=== PATIENT | male | born 1960 | race Caucasian/White ===

== ENCOUNTER 2017-02-25 15:37 | Observation (INO) | payer OTHER ==
[2017-02-25] MEDS ORDERED: IOPAMIDOL (ISOVUE-300) 100 ML BTL ONE (17:08)
[2017-02-25] MEDS ORDERED: TDAP ADULT 0.5 ML INJ (BOOSTRIX) IM ONE (17:12)
[2017-02-25] MEDS ORDERED: HYDROmorphONE/DILAUDID 2 MG/ML INJ ONE (17:20)
[2017-02-25] MEDS ORDERED: ONDANSETRON 4 MG/2 ML VIAL ONE (17:20)
[2017-02-25] MEDS ORDERED: ONDANSETRON 4 MG/2 ML VIAL IVP ONE (17:37)
[2017-02-25] MEDS ORDERED: HYDROmorphONE/DILAUDID 1 MG/ML SYR IVP ONE (17:37)
[2017-02-25 18:04] LABS: % IMMATURE GRANULYOCYTES 0.4 % (0.0-1.1); ABSOLUTE IMMATURE GRANULOCYTES 0.04 10^3/uL (0.00-0.10); ADD DIFF? NO; ADD MORPH? NO; ADD SCAN? NO; ATYPICAL LYMPHOCYTE FLAG 0 (0-99); FRAGMENT RBC FLAG 0 (0-99); HEMATOCRIT 48.2 % (40.0-51.0); HEMOGLOBIN 16.8 g/dL (13.7-17.5); LEFT SHIFT FLG 0 (0-99); LIPEMIA HEMOLYSIS FLAG 90 (0-99); MEAN CELL HEMOGLOBIN CONCENTR. 34.9 g/dL (32.4-36.7); MEAN CELL VOLUME 88.9 fL (81.5-99.8); MEAN PLATELET VOLUME 10.3 fL (8.7-11.7); PLATELET CLUMPS FLAG 20 (0-99); PLATELET COUNT 176 10^3/uL (150-400); RED BLOOD CELL COUNT 5.42 10^6/uL (4.40-6.38)
[2017-02-25] MEDS ORDERED: NS 1,000 ML IV ONE (18:16)
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
[2017-02-25] MEDS ORDERED: ONDANSETRON 4 MG/2 ML VIAL IVP PRN (20:05)
[2017-02-25] MEDS: D5W 1/2 NS 1,000 ML IV SCH (20:32)
[2017-02-25] MEDS ORDERED: oxyCODONE IR 5 MG TAB PO PRN ×2 (20:37)
[2017-02-25] MEDS ORDERED: ACETAMINOPHEN 325 MG TAB PO PRN (20:38)
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
[2017-02-26] MEDS: D5W 1/2 NS 1,000 ML IV SCH (03:46)
[2017-02-26 07:32] LABS: HEMATOCRIT 41.9 % (40.0-51.0); HEMOGLOBIN 14.6 g/dL (13.7-17.5)
[2017-02-26 07:37] VITALS: RESP 16; TEMP 98.6
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
[2017-02-26 11:21] LABS: HEMATOCRIT 44.6 % (40.0-51.0); HEMOGLOBIN 15.5 g/dL (13.7-17.5)
[2017-02-26 11:43] VITALS: BP 117/74; PULSE 66; O2SAT 97
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
== END 2017-02-26 15:29 | disposition home or self-care (01) ==
LOC: F3N 19:53
PROVIDERS: ADMIT Surgery; ATTEND Surgery
DX: S30.1XXA Contusion of abdominal wall, initial encounter (principal); S42.001A Fracture of unspecified part of right clavicle, initial encounter for closed fracture; M43.16 Spondylolisthesis, lumbar region; V18.0XXA Pedal cycle driver injured in noncollision transport accident in nontraffic accident, initial encounter; Z87.891 Personal history of nicotine dependence
CPT/HCPCS: 71020; 73000; 74177; G0378; 82947-QW; 96374; J1170; J2405; Q9967

== ENCOUNTER → 2017-06-10 | Outpatient (CLI) | payer OTHER | LOC: FIMAGING 09:44 | PROVIDERS: ATTEND Internal Medicine | DX: E03.9 Hypothyroidism, unspecified (principal) | CPT/HCPCS: 78012; A9516 ==

== ENCOUNTER → 2018-12-24 | Outpatient (CLI) | payer OTHER ==
[~2018-12-24] MED LIST: IOPAMIDOL (ISOVUE-370) 150 ML BTL IV ONE
== END ==
LOC: FIMAGING 10:51
PROVIDERS: ATTEND Internal Medicine Cardiovascular Disease
DX: I48.91 Unspecified atrial fibrillation (principal); R91.1 Solitary pulmonary nodule
CPT/HCPCS: Q9967

== ENCOUNTER 2018-12-30 11:00 | Observation (INO) | payer OTHER ==
[2018-12-30] MEDS ORDERED: NS 1,000 ML IV ONE (11:02)
--- NOTE | 2018-12-30 11:28 | PDGENHP ---
History & Physical Chief Complaint: symptomatic afib Relevant Physical Exam: s1s2. cta. ao3 Cardiorespiratory Assessment: for cb pvi and afl ablation
[2018-12-30 11:59] LABS: PLATELET COUNT 160 10^3/uL (150-400)
[2018-12-30] MEDS ORDERED: MIDAZOLAM 2 MG/2 ML VIAL IVP ONE (11:59)
--- NOTE | 2018-12-30 12:00 | PDANEPAE ---
ANE History of Present Illness ep ANE Past Medical History - Cardiovascular History Hx Hypertension: No Hx Arrhythmias: Yes Hx Chest Pain: No Hx Coronary Artery / Peripheral Vascular Disease: No Hx CHF / Valvular Disease: No Hx Palpitations: No - Pulmonary History Hx COPD: No Hx Asthma/Reactive Airway Disease: No Hx Recent Upper Respiratory Infection: No Hx Oxygen in Use at Home: No Hx Sleep Apnea: No - Neurologic History Hx Cerebrovascular Accident: No Hx Seizures: No Hx Dementia: No - Endocrine History Hx Diabetes: No Hypothyroid: No Hyperthyroid: No Obesity: no - Renal History Hx Renal Disorders: No - Liver History Hx Hepatic Disorders: No - Chronic Pain History Chronic Pain: No ANE Review of Systems Review of Systems: - Exercise capacity Exercise capacity: >=4 METS ANE Patient History - Allergies Allergies/Adverse Reactions: alcohol Allergy (Severe, Uncoded 02/25/17 16:03) throat swells up - Home Medications Home medications: home medication list seen and reviewed Home Medications: Aspirin [Aspirin 81mg (*)] 81 mg PO DAILY 02/25/17 [Last Taken 02/25/17] Cetirizine [ZyrTEC 10 mg (*)] 10 mg PO DAILY PRN 02/25/17 [Last Taken 02/25/17] EPINEPHRINE [EPIPEN] 0.3 mg IM PRN PRN 02/25/17 [Last Taken Unknown] Apixaban [Eliquis] 5 mg PO BID 12/23/18 [Last Taken Unknown] Herbals/Supplements -Info Only 1 ea PO DAILY 12/23/18 [Last Taken Unknown] Multivitamins [Multivitamin (*)] 1 each PO DAILY 12/23/18 [Last Taken Unknown] Omeprazole 20 mg PO DAILY 12/23/18 [Last Taken Unknown] - NPO status NPO Status: no food or drink >8 hours - Anes Hx Anes Hx: no prior problems - Smoking Hx Smoking Status: Former smoker ANE Labs/Vital Signs - Labs Result Diagrams: 12/30/18 11:45 12/30/18 11:45 ANE Physical Exam - Airway Mallampati Score: Class 2 - Pulmonary Pulmonary: no respiratory distress - Cardiovascular Cardiovascular: regular rate and rhythym ANE Anesthesia Plan Anesthesia Plan: general endotracheal anesthesia
[2018-12-30 12:11] LABS: INR 0.94 (0.83-1.16); PROTIME(PATIENT) 12.2 SEC (12.0-15.0)
[2018-12-30] MEDS ORDERED: HEPARIN 10,000 UNIT/10 ML MDV (1,000 UNIT/ML) ONE (12:26)
[2018-12-30] MEDS ORDERED: HEPARIN/DEXTROSE 25,000 UNIT/500 ML BAG ONE (12:26)
[2018-12-30] MEDS ORDERED: LIDOCAINE 1% 300 MG/30 ML SDV ONE (12:26)
[2018-12-30] MEDS ORDERED: BUPIVACAINE 0.75% 10 ML SDV ONE (12:27)
[2018-12-30] MEDS ORDERED: IOPAMIDOL (ISOVUE-300) 100 ML BTL ONE (12:27)
[2018-12-30] MEDS ORDERED: SUCCINYLCHOLINE CHLORIDE 200 MG/10 ML SYR IVP ONE (12:30)
[2018-12-30] MEDS ORDERED: fentaNYL 100 MCG/2 ML INJ ONE (12:30)
[2018-12-30] MEDS ORDERED: ONDANSETRON 4 MG/2 ML VIAL ONE (12:30)
[2018-12-30] MEDS ORDERED: LIDOCAINE 2% 2 ML INJ ONE ×3 (12:30)
[2018-12-30] MEDS ORDERED: PROPOFOL 200 MG/20 ML VIAL ONE (12:30)
[2018-12-30] MEDS ORDERED: DEXAMETHASONE 4 MG/ML VIAL ONE (12:30)
[2018-12-30] MEDS ORDERED: ROCURONIUM 50 MG/5 ML VIAL ONE ×2 (12:30→15:27)
[2018-12-30] MEDS ORDERED: PROTAMINE SULFATE 50 MG/5 ML VIAL IVP ONE (14:46)
[2018-12-30] MEDS ORDERED: SUGAMMADEX SODIUM 200 MG/2 ML VIAL IVP ONE ×2 (15:48)
--- NOTE | 2018-12-30 16:00 | EPPROC ---
Electrophysiology Procedure Note: ELECTROPHYSIOLOGIC STUDY AND BALLOON-CATHETER MEDIATED CRYOABLATION FOR EARLY PERSISTENT ATRIAL FIBRILLATION Procedures performed: 67310-27 EP evaluation with RA/RV/LA pace/record, with arrhythmia induction 57750-88 EP evaluation with RA/RV pace record, insert/reposition catheter, with arrhythmia induction 37212 Atrial fibrillation ablation Second arrhythmia Intracardiac echocardiogram Transseptal puncture Fluoroscopy INDICATION: Paroxysmal atrial fibrillation Atrial flutter PROCEDURE: The patient arrived in the Electrophysiology Laboratory in the fasting state. The right groin, left groin and right infraclavicular area were prepped and draped in the usual sterile fashion. Anesthesiologist administered general anesthesia Dr. Tirso Crum . All catheters were placed percutaneously using the Seldinger technique and advanced into position under fluoroscopic guidance. One #7 Cameroonian deflectable octapolar electrode catheter was placed in the His-bundle position via the left femoral vein (2mm spacing, IVC electrode for unipolar recordings). This catheter was placed in the coronary sinus after transseptal puncture and later placed in the SVC-R subclavian vein junction to pace the right phrenic nerve during right pulmonary vein ablation. One #8 Cam[place]onian AcuNaV ultrasound catheter was placed in the left femoral vein and advanced into the right atrium. Programmed stimulation was performed from the right atrium, left atrium (CS) and right ventricle. Intracardiac echo evaluation of the left atrium and pulmonary veins was performed. Baseline ACT was drawn and heparin bolus was administered and heparin drip was started prior to transseptal puncture. ACT was checked every 15 minutes and maintained in the range of 350-400 seconds. One 14Fr short sheath was placed in the right femoral vein. One 8Fr SL1 sheath was advanced into the right atrium via the 14Fr short sheath. Transseptal puncture was performed under intracardiac ultrasound, fluoroscopic and hemodynamic guidance placing the sheath into the left atrium. [employer] RF needle ( C0 curve) was used. The mean left atrial pressure was 14 mmHg. The SL1 sheath was exchanged for a Contact At Once!tronic Flexcath sheath using an Amplatz stiff guide wire. A 28 mm Cryoballoon catheter with a 20 mm Achieve catheter was placed via the sheath into the left atrium. Intracardiac ultrasound and PV angiograms were used to assist in placing the mapping catheter at the antrum of the pulmonary veins. All pulmonary veins were isolated successfully using cryoballoon ablation using freeze/thaw/freeze cycles at 2-3-minute intervals, with good [id number] of isolation. Coumadin ridge/Ligament of Harry region was ablated. Pre and post pulmonary vein recordings were measured on the spiral Achieve catheter to ensure complete pulmonary vein isolation. During the right-sided ablation, phrenic nerve pacing was performed to assess the phrenic nerve strength ( manually and with ICE visualization of liver movement during phrenic capture) and the phrenic nerve was intact throughout the right-sided ablation and at the end of the procedure. An esophageal temperature probe (12 electrode, Circa) was placed by the anesthesiologist at the beginning of the procedure. Esophageal temperature was monitored continuously and cryoablation was interrupted if esophageal temperature was <15 C. Cryoapplications 5 total cryoablation time 900s Post AFIB ablation, sheath was changed to Mobi sheath , 3D and ICE map of CT isthmus obtained and ablation performed in the CT isthmus at 0630 as seen in the STEVIE view. Halo catheter was placed prior along TA. Bidirectional conduction block was achieved but patient did develop AF that required DCCV x 3. ICE imaging post ablation was consistent with pre ablation imaging with no changes noted, moreover there was no left atrial/left ventricular thrombus and no pericardial effusion. The catheters were withdrawn. Protamine was given. Venous vascular access sheaths were removed in the EP lab after placing subcutaneous pursestring suture. The patient was recovered from anesthesia. There were no complications. The patient was arousable and moving all four extremities at the end of the procedure. CONCLUSIONS: 1. Paroxsymal atrial fibrillation and atrial flutter. 2. Successful pulmonary vein isolation procedure (left and right pulmonary vein antrum) using cryoballoon ablation. 3. Cavotricuspid isthmus ablation for atrial flutter, bidirectional block achieved. 4. No apparent complications. Patient Problems: Problems Problem Status Onset Atrial fibrillation Acute Right clavicle fracture Acute Superficial abrasion Acute
[2018-12-30] MEDS ORDERED: CETIRIZINE 10 MG TAB PO PRN (16:01)
[2018-12-30] MEDS ORDERED: LR 500 ML IV PRN (16:26)
[2018-12-30] MEDS ORDERED: ALBUTEROL 3 ML DEYVIAL IH PRN (16:26)
[2018-12-30] MEDS ORDERED: fentaNYL 100 MCG/2 ML INJ IVP PRN (16:26)
[2018-12-30] MEDS ORDERED: NALOXONE HCL 0.4 MG/ML INJ IVP PRN (16:26)
[2018-12-30] MEDS ORDERED: ONDANSETRON 4 MG/2 ML VIAL IVP PRN (16:26)
--- NOTE | 2018-12-30 16:27 | POSTANESTH ---
Post Anesthetic Evaluation Cardiovascular Status: Normal, Stable Respiratory Status: Normal, Stable Level of Consciousness/Mental Status: Can Participate in Eval Pain Control: Adequate, Prn Tx Ordered Nausea/Vomiting Control: Adequate, Prn Tx Ordered Complications Possibly Related to Anesthesia: None Noted
[2018-12-30] MEDS: APIXABAN 5 MG TAB PO SCH (21:45)
[2018-12-31 06:32] LABS: PLATELET COUNT 155 10^3/uL (150-400)
[2018-12-31] MEDS: APIXABAN 5 MG TAB PO SCH (07:51)
[2018-12-31 08:36] VITALS: BP 105/76
[2018-12-31] MEDS ORDERED: PANTOPRAZOLE SODIUM 40 MG TAB PO SCH (09:00)
--- NOTE | 2018-12-31 09:01 | CPEKG ---
Test Reason : OPEN Blood Pressure : / mmHG Vent. Rate : 057 BPM Atrial Rate : 057 BPM P-R Int : 151 ms QRS Dur : 112 ms QT Int : 449 ms P-R-T Axes : 009 -21 012 degrees QTc Int : 438 ms Sinus rhythm Incomplete right bundle branch block Confirmed by Zbigniew Blancas ([id number]) on 12/31/2018 9:01:05 AM Referred By: Jessica Medina Confirmed By:Zbigniew Blancas
--- NOTE | 2018-12-31 09:09 | CPEKG ---
Test Reason : OPEN Blood Pressure : / mmHG Vent. Rate : 065 BPM Atrial Rate : 064 BPM P-R Int : 144 ms QRS Dur : 114 ms QT Int : 435 ms P-R-T Axes : 037 -21 013 degrees QTc Int : 453 ms Sinus rhythm Incomplete RBBB Confirmed by Zbigniew Blancas ([id number]) on 12/31/2018 9:09:22 AM Referred By: Jessica Medina Confirmed By:Zbigniew Blancas
--- NOTE | 2018-12-31 10:24 | ECHO ---
[email or web address] [address] [address] Main: [phone] Echocardiography Examination Transthoracic Name: WILLIE ALLEN MR#: [id number] Study Date: 12/31/2018 Study Time: 07:45 AM Date of : 1960 Age: 58 year(s) Height: 190.5 cm (75 in.) Weight: 89.36 kg (197 lb.) BSA: 2.18 m2 Gender: Male Examination: Echo Contrast: Image Quality: Adequate Rhythm: Normal sinus rhythm Heart Rate: 67 bpm BP: 113 mmHg/77 mmHg Indication: f/u post EP study Procedure Staff Referring Physician: Granite Polisher Apprentice: Eveline Diego [facility] [email or web address]] Reading Physician: Carroll Rizvi MD Requesting Provider: Ordering Physician: aPco Nolasco MD Indication: f/u post EP study Measurements Chambers AV/MV Label Value Normal Value Label Value Normal Value LVOT Vmax 1.03 m/s (0.7m/s - 1.1m/s) AR PHT 0.74 s LVOTd 2.3 cm (1.9cm - 2.1cm) AR PHT 739 ms LVOT PGmax 4 mmHg AR Vena contracta 0.5 cm LVDd, 2D 4.5 cm (4.2cm - 5.9cm) AR Vmax 3.47 m/s LVDs, 2D 2.8 cm (2.1cm - 4cm) AV PGmax 5 mmHg IVSd, 2D 1.2 cm (0.6cm - 1.1cm) AV Vmax 1.09 m/s LVPWd, 2D 0.7 cm (0.6cm - 1cm) ROMINA (Vmax) 3.9 cm2 LVEF, BP 66 % (55% - 70%) MV E Vmax 0.73 m/s LVEF, 2D 67 % (54% - 74%) MV A Vmax 0.44 m/s EF lower range (%) 60 % MV E/A 1.66 EF upper range (%) 65 % MV E/E' lateral 6.8 RVDd, 2D 3.1 cm (1.9cm - 3.8cm) MV E/E' septal 10.8 (0.5 - 1.7) TAPSE 2.1 cm MV DT 116 ms LA Volume, BP 54 ml (18ml - 58ml) MV E' septal 0.07 m/s LADs, 2D 2.9 cm (3cm - 4cm) MV E' lateral 0.11 m/s LAESV index, BP 24.8 ml/m2 MV E/E' mean 8.11 RA Area 12.3 cm2 MV E' mean 0.09 m/s Additional Vessels TV/PV Label Value Normal Value Label Value Normal Value Patient: WILLIE ALLEN Study Date: 12/31/2018 Page 1 of 3 07:45 AM AoAsc 3.6 cm RA Pressure 5 mmHg AoRoot, 2D 3.6 cm (1.4cm - 2.6cm) RVSP 31 mmHg TR Pmax 26 mmHg TR Vmax 2.55 m/s PV PGmax 2 mmHg PV Vmax, Caliper 0.75 m/s (0.6m/s - 0.9m/s) Conclusions Left Ventricle: Left ventricle is normal in size. EF range is estimated at 60 % - 65 %. Right Ventricle: Right ventricular systolic function is normal. Left Atrium: The left atrium is normal in size. IAS: Normal appearing atrial septum. Right Atrium: The right atrium is normal in size. Tricuspid Valve: Right Ventricular systolic pressure is measured at 31 mmHg. Pericardium: A small pericardial effusion was identified. Echo findings are not consistent with tamponade physiology. Findings Left Ventricle: Left ventricle is normal in size. Normal global systolic left ventricular function. EF evaluated by EF (biplane Romero's). The ejection fraction, measured by Simpsons method, is 66 %. EF range is estimated at 60 % - 65 %. Left ventricle wall thickness is normal. There are no regional wall motion abnormalities. Left ventricular diastolic function parameters are normal. Right Ventricle: Normal size right ventricle. Right ventricular systolic function is normal. Left Atrium: The left atrium is normal in size. IAS: Normal appearing atrial septum. Right Atrium: The right atrium is normal in size. Mitral Valve: Mitral valve appears structurally normal. Trivial to mild mitral regurgitation. No mitral valve stenosis. Aortic Valve: The aortic valve is structurally normal and trileaflet. Mild aortic regurgitation is present. There is no aortic stenosis. Tricuspid Valve: Tricuspid valve leaflets are structurally normal. Mild tricuspid regurgitation. No tricuspid valve stenosis. Right Ventricular systolic pressure is measured at 31 mmHg. Pulmonary artery pressure slightly increased. Patient: WILLIE ALLEN Study Date: 12/31/2018 Page 2 of 3 07:45 AM Pulmonic Valve: Pulmonic valve not well visualized. Trivial pulmonic valve regurgitation is present. Aorta: The aortic root size in 2D measures 3.6 cm. The aortic root exhibits normal size. The ascending aorta measures 3.6 cm. Ascending aorta is normal in size. Aorta Measurements AoRoot, 2D is 3.6 cm. IVC: The inferior vena cava is normal in size and course. Pericardium: A small pericardial effusion was identified. Echo findings are not consistent with tamponade physiology. Exam Details Procedure Ordered: Echo Procedure Status: Routine study Image Quality: Adequate Facility Location: Cardiac Echo 1 (No Signature Object) Patient: WILLIE ALLEN Study Date: 12/31/2018 Page 3 of 3 07:45 AM [id number]
--- NOTE | 2018-12-31 10:37 | GDS ---
[f rep st] DISCHARGE SUMMARY SUPERVISING PROPERTY CUSTODIAN: Paco Nolasco. ADMISSION DIAGNOSES: 1. Paroxysmal atrial fibrillation. 2. Atrial flutter. DISCHARGE DIAGNOSES: 1. Paroxysmal atrial fibrillation status post cryoballoon pulmonary vein isolation. 2. Atrial flutter status post cavotricuspid isthmus ablation. PROCEDURES PERFORMED DURING HOSPITALIZATION: 1. Electrocardiogram. 2. Echocardiogram. 3. Electrophysiology study. 4. Atrial fibrillation ablation. 5. Atrial flutter ablation. HOSPITAL COURSE: Patient presented 12/30/2018 for atrial fibrillation and atrial flutter ablation in the setting of increasing frequency and severity of symptomatic atrial arrhythmias. He underwent successful cryoballoon pulmonary vein isolation and cavotricuspid isthmus ablation with Dr. Paco Nolasco without any intra procedure complications. He has done very well in the postprocedure setting and has been ambulating around his room this morning without issue. He is appropriate and stable for discharge home today. PHYSICAL EXAMINATION: GENERAL: Alert and oriented x4. No apparent distress. VITAL SIGNS: Blood pressure 105/76, heart rate 65, respiratory rate 15, SpO2 92 % on room air, temp 37.0 degrees Celsius. RESPIRATORY: Lungs are clear to auscultation without adventitious breath sounds. CARDIAC: Regular rate and rhythm, S1, S2. No S3, S4. ABDOMEN: Normoactive bowel sounds times all 4 quadrants. No masses or tenderness. Soft to palpation. SKIN: [place], warm, dry without cyanosis, clubbing, or peripheral edema. EXTREMITIES: Bilateral pursestring sutures removed intact without evidence of hematoma, redness, oozing , swelling, or warmth. Pulses are 2+ bilaterally. No edema. LABORATORY STUDIES: Drawn today. CBC and BMP are stable compared to preprocedure, troponin 13.3. Please note the elevated troponin is to be expected in the postprocedure setting. PROCEDURES: Electrophysiology study, atrial fibrillation, atrial flutter ablation as mentioned above. Preliminary review of echocardiogram this morning demonstrates normal left ventricular systolic function with a small pericardial effusion without any wall motion abnormalities. Electrocardiogram this morning demonstrates normal sinus rhythm without new ST-T wave or MI interval abnormalities. DISCHARGE DISPOSITION: Patient will be discharged home in stable condition. He is under activity restrictions as below. DISCHARGE MEDICATIONS: Please see discharge medication reconciliation sheet for full details. Please note, the patient has been restarted on his Eliquis 6 hours post procedure and he will continue this medication uninterrupted for 3 months. He has also been started on antacid for GI prophylaxis. DISCHARGE INSTRUCTIONS: Post atrial fibrillation and atrial flutter ablation instructions reviewed with patient in detail. 1. We discussed activity restrictions including lifting no more than 10 pounds and avoidance of submerged bathing for 10 days. 2. He will get up and walk around every 45 minutes for 45 days. 3. He will avoid unpressurized air travel or scuba diving for the next 6 months and he will present to our clinic prior to engaging in either of these activities to undergo echocardiogram. 4. We also reviewed bleeding precautions, medication compliance, monitoring for signs and symptoms of infection, monitoring for atrial esophageal fistula, and monitoring for sustained arrhythmias. At the time of discharge, patient verbalized understanding regarding all discharge instructions without questions or concerns. He has a followup visit scheduled in 2 weeks. He will contact the clinic with new or concerning symptoms prior to his upcoming visit. TIME SPENT ON DISCHARGE: Greater than 30 minutes. /[id number]/MODL YARIEL
--- NOTE | 2019-01-05 17:17 | ECHO ---
[email or web address] [address] [address] Main: [phone] Echocardiography Examination Transesophageal Name: WILLIE ALLEN MR#: [id number] Study Date: 12/30/2018 Study Time: 01:01 PM Date of : 1960 Age: 58 year(s) Height: ( ) Weight: ( ) BSA: Gender: Male Examination: MONIKA Contrast: Image Quality: Good Rhythm: Heart Rate: BP: / Indication: Pre EP Procedure Staff Referring Physician: Casting Technician: Stevan Bradley RDCS Reading Physician: Paco Nolasco MD Requesting Provider: Ordering Physician: Paco Nolasco MD Indication: Pre EP Normal LV function. No thrombus in left atrial appendage. Mild mitral regurgitation. Acute complication: None Findings Left Ventricle: The EF is visually estimated to be 65 %. Right Ventricle: The RV function appears grossly normal. Left Atrium Appendage: Good color flow doppler in the left atrial appendage. No thrombus is identified. IAS: An agitated saline study was performed and was negative for intracardiac shunting. Right Atrium: There is evidence of a prominent eustachian valve in right atrium. Mitral Valve: Trivial to mild mitral regurgitation. Aortic Valve: Mild aortic regurgitation is present. The aortic valve is trileaflet. Tricuspid Valve: Tricuspid valve leaflets are normal in appearance and function. No significant tricuspid regurgitation. Pulmonic Valve: No pulmonic valve regurgitation is evident. Aorta: Patient: WILLIE ALLEN Study Date: 12/30/2018 Page 1 of 2 01:01 PM Ascending aorta is normal in size. Pericardium: There is a trivial to small pericardial effusion at the apex of the LV. Exam Details Procedure Ordered: MONIKA Procedure Status: Routine study Image Quality: Good Consent: Risks, alternatives of procedure explained to patient, informed consent obtained Probe Insertion: Attending music theory professor Facility Location: Cardiac Echo 1 (No Signature Object) Patient: WILLIE ALLEN Study Date: 12/30/2018 Page 2 of 2 01:01 PM [id number]
== END 2018-12-31 11:45 | disposition home or self-care (01) ==
LOC: FCATH 11:00 → F2N 16:02
PROVIDERS: ADMIT Internal Medicine Cardiovascular Disease; ATTEND Internal Medicine Cardiovascular Disease
DX: I48.0 Paroxysmal atrial fibrillation (principal); I48.92 Unspecified atrial flutter
CPT/HCPCS: 93005; 93306; 93613; 93655; 93656; 93662; C1893; G0378; C1730; C1731; C1732; C1733; C1759; C1766; J0330; J1100; J1644; J2405; J2704; J2720; J3010; Q9967